=== PATIENT | female | born 1935 | race Caucasian/White ===

== ENCOUNTER 2020-01-13 12:00 | Inpatient (IN) | payer MEDICARE, BC ==
[~2020-01-13] VITALS: Ht 162.6 cm; Wt 80.3 kg
[~2020-01-13 12:00] MED LIST: APAP650 PO; ASPIRIN EC81 M1 PO; BACTRIM DS TAB1 EACH PO; CALCIUM OYSTER500 MG PO; CO Q-10 100 MG1 EACH PO; CRESTOR20 MG PO; DIOVAN HCT 80-1 EACH PO; GARLIC OIL1 EAC1 PO; GARLIC OIL3 MG PO; LORTAB 5 MG/5001 TAB PO; MOM PO; MULTIVITAMINS PO; NEURONTIN 300300 M1 PO; STOOL SOFTENER1 EAC2 PO; TRAMADOL 50 MG50 MG PO
[2020-01-13 12:02] VITALS: BP 189/128
[2020-01-13] MEDS ORDERED: ALEVE220 M1 PO (12:21)
[2020-01-13 12:29] LABS: URINE BILIRUBIN NEGATIVE (Negative); URINE BLOOD NEGATIVE (Negative); URINE CLARITY CLEAR; URINE COLOR YELLOW; URINE GLUCOSE-RANDOM NEGATIVE (Negative); URINE KETONES NEGATIVE (Negative); URINE LEUKOCYTES-REFLEX TRACE (Negative); URINE PROTEIN NEGATIVE (Negative); URINE SPECIFIC GRAVITY 1.015 (1.005-1.030); URINE UROBILINOGEN 0.2 E.U./dl (0.2-1.0)
[2020-01-13 12:30] LABS: URINE NITRITE-REFLEX POSITIVE (Negative)
[2020-01-13 12:36] LABS: SQUAMOUS 0-3 Few /LPF (0-3); URINE WBC-REFLEX 6-15 Few /HPF (0-5)
[2020-01-13 12:37] LABS: CASTS None Seen /LPF (None Seen); CRYSTALS None Seen /LPF (None Seen); MUCUS 0-3 Light strn/LPF (None Seen); URINE RBC 0-2 Rare /HPF (0-2)
[2020-01-13 13:42] LABS: ABSOLUTE BASOPHILS 0.1 thou/uL (0.0-0.2); ABSOLUTE EOSINOPHILS 0.2 thou/uL (0.0-0.7); ABSOLUTE LYMPHOCYTES 1.2 thou/uL (0.8-5.3); ABSOLUTE MONOCYTES 0.4 thou/uL (0.0-1.2); ABSOLUTE NEUTROPHILS 3.8 thou/uL (1.6-8.1); EOSINOPHILS 2.9 %; HEMOGLOBIN 13.8 gm/dL (12.0-15.0); LYMPHOCYTES 21.3 %; MCH 30.2 pg (26.0-34.0); MCHC 33.8 g/dL (28.0-37.0); MCV 89.3 fL (80.0-100.0); MONOCYTES 7.3 %; MPV 8.5 fl. (7.2-11.1); NUCLEATED RBCS 0 /100WBC; PLATELET COUNT* 297 thou/uL (150-400); POLYS 67.5 %; RBC 4.59 mil/uL (4.20-5.00); RDW-CV 13.3 % (10.5-14.5); WBC 5.6 thou/uL (4.0-11.0)
--- NOTE | 2020-01-13 13:43 | EKG ---
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
[2020-01-13 13:51] LABS: PROTIME 10.3 Seconds (9.20-11.50)
[2020-01-13 13:58] LABS: CALCIUM 8.6 mg/dL (8.5-10.1); CREATININE 0.8 mg/dL (0.6-1.3); POTASSIUM 3.8 mmol/L (3.5-5.1)
[2020-01-13 14:03] LABS: ALBUMIN 3.6 g/dL (3.4-5.0); TOTAL BILIRUBIN 0.8 mg/dL (<0.1-1.0); TOTAL PROTEIN 7.1 g/dL (6.4-8.2)
[2020-01-13 20:15] VITALS: BP 175/93
[2020-01-13 20:30] VITALS: BP 148/90
--- NOTE | 2020-01-13 20:30 | NUR ---
PT ADMITTED TO FLOOR PER CART ACCOMPANIED BY ER STAFF WITH BELONGINGS. ORIETED TO SELF AND KNOWS SHE IS "AT A HOSPITAL". PLEASANT. SLIDES WITH ASSIST FROM CART TO BED. SEWELL DRAINING YELLOW URINE. RWRIST IV SL, WITH PROTECTIVE WRAP IN PLACE, ER STAFF STATES PT PULLED OUT IV BEFORE COMING TO FLOOR AND NEW ONE STARTED. O2 2L, SAT 99%. ORIENTED TO ROOM AND CALL LITE, SNACK OBTAINED FOR PT PER REQUEST. BED ALARM ON FOR SAFETY, FALL PRECAUTIONS IN PLACE. CALL LITE IN EASY REACH. WILL CONTINUE TO MONITOR AND PROVIDE CARES NEEDED.
--- NOTE | 2020-01-14 05:26 | NUR ---
NEW ADMIT THIS SHIFT, PT HAS BEEN AWAKE MUCH OF THE NIGHT. AO TO SELF, CONFUSED, DEMENTIA. ASKING ABOUT FAMILY MEMBERS, QUESTIONS ANSWERED AND CONTINUE TO ASK THE SAME QUESTIONS IN A FEW MINUTES. IMPULSIVE, PULLING AT IV AND SEWELL- EDUCATION GIVEN, PT PLEASANT AND AGREES TO LEAVE THEM ALONE BUT FORGETS AND CONTINUES TO PULL AT LINES. NEW IV LFA, WRAPPED WITH PROTECTIVE WRAP PLACED ON PUMP FOR INFUSION. SEWELL DRAINING YELLOW URINE. PT MOVES ABOUT IN BED, SETTING OFF BED ALARM TRYING TO CLIMB OUT BETWEEN RAILS TO GO "TALK TO MY DAUGHTER IN THE OTHER ROOM." NAPROXEN GIVEN FOR CO HIP PAIN, UNABLE TO RATE. ATE 50% REGULAR SNACK AT BEDTIME. JUANA AREA RED, JUANA CARE GIVEN. O2 2L NC, ROOM AIR SAT 89%, DIFFICULT TO KEEP O2 ON PT. CALL LITE IN EASY REACH, BED ALARM ON FOR SAFETY.
[2020-01-14 09:00] VITALS: BP 185/96
[2020-01-14 10:42] LABS: HEMATOCRIT 41.1 % (37.0-47.0); HEMOGLOBIN 13.7 gm/dL (12.0-15.0); MCH 29.8 pg (26.0-34.0); MCHC 33.3 g/dL (28.0-37.0); MCV 89.5 fL (80.0-100.0); MPV 8.4 fl. (7.2-11.1); RBC 4.59 mil/uL (4.20-5.00); RDW-CV 13.2 % (10.5-14.5); WBC 7.1 thou/uL (4.0-11.0)
[2020-01-14 11:01] LABS: ALBUMIN 3.3 g/dL (3.4-5.0); CALCIUM 8.2 mg/dL (8.5-10.1); CREATININE 0.9 mg/dL (0.6-1.3); MAGNESIUM 1.9 mg/dL (1.8-2.4); POTASSIUM 3.4 mmol/L (3.5-5.1); TOTAL BILIRUBIN 0.9 mg/dL (<0.1-1.0); TOTAL PROTEIN 6.9 g/dL (6.4-8.2)
[2020-01-14 16:00] VITALS: BP 186/91
--- NOTE | 2020-01-14 19:31 | NUR ---
ALERT TO SELF. CONFUSED TO PLACE AND TIME. FREQUENTLY PULLING AT TUBINGS/IV. IV INFILTRATED WHEN PATIENT REMOVED COBAN. NEW IV STARTED WITHOUT DIFFICULTY. DR NOTIFIED OF ELEVATED B/P. NEW ORDERS NOTED. IVF STOPPED. SEWELL CATHETER PATENT WITH CLEAR YELLOW URINE. FREQUENTLY SETTING OFF CHAIR ALARM TODAY. AT BEDSIDE FOR PART OF TODAY. ON SCHEDULED PAIN MEDICATION. CONTINUES ON IV ANTIBIODICS WITHOUT ADVERSE REACTIONS OR SIDE EFFECTS. UP WITH 1 ASSIST GAIT BELT AND WALKER. FALL PRECAUTIONS IN PLACE. BED ALARM AND CHAIR ALARM USED.
[2020-01-14 20:00] VITALS: BP 176/101
[2020-01-15] VITALS: BP 140/81
--- NOTE | 2020-01-15 06:14 | NUR ---
PATIENT ALERT AND ORIENTED TO SELF ONLY. WAS UP IN CHAIR AT SHIFT CHANGE. BACK TO BED 1999. CONTINUED TO SET OFF ALARM MULTIPLE TIMES. TYLENOL GIVEN FOR LOW-GRADE TEMP. BENADRYL PROVIDED FOR SLEEP AND PATIENT'S CONSTANT PICKING. THIS DID SEEM TO HAVE SOME POSITIVE EFFECT AND PATIENT APPEARED TO BE SLEEPING AFTER MIDNIGHT AND CURRENTLY RESTING QUIETLY. FALL PRECAUTIONS IN PLACE. BP MEDICATION STARTED YESTERDAY. MIDNIGHT BP MUCH IMPROVED AT 140/81. CONTINUE TO MONITOR.
[2020-01-15 10:00] VITALS: BP 137/68
--- NOTE | 2020-01-15 17:03 | NUR ---
ALERT TO SELF. CONFUSED TO PLACE, TIME AND SITUATION. HASBAND AT BEDSIDE. SEWELL CATHETER PATENT WITH CLEAR YELLOW URINE. CONTINUES ON IV ANTIBIODICS WITH NO ADVERSE REACTIONS. FALL PRECAUTIONS IN PLACE. BED ALARM AND CHAIR ALARM USED. UP WITH 1 ASSIST GAIT BELT AND WALKER. CONTINENT OF BOWEL MOVENENT.
[2020-01-15 18:35] VITALS: BP 153/80
--- NOTE | 2020-01-16 05:48 | NUR ---
PT ALERT, ORIENTED ONLY TO SELF; PLEASANTLY CONFUSED. PT ASSISTED WITH TURNS BUT WOULD MOVE TO BACK TO SUPINE. PT WITH SEWELL TO DEPENDENT DRAIN WITH DARK YELLOW URINE. UNABLE TO KEEP STAT LOCK ON SEWELL PT REPEATEDLY REMOVES IT. PT WITH SALINE LOCK IN LT AC. PT 95% ON ROOM AIR; VITALS WNL AND REMAINED AFEBRILE DURING THIS SHIFT. PT TAKES PILLS ONE AT A TIME. FREQUENTLY USED ITEMS AND CALL LIGHT WITHIN REACH. SIDERAILS UPX3 AND BED ALARM ON. FREQUENT OBSERVATIONS MADE. WILL CONTINUE TO MONITOR.
[2020-01-16 08:00] VITALS: BP 173/68
[2020-01-16] MEDS ORDERED: METOPROLOL TART25 MG PO (08:30)
[2020-01-16] MEDS ORDERED: KEFLEX500 M1 PO (08:30)
[2020-01-16 11:35] VITALS: BP 173/68
--- NOTE | 2020-01-16 11:37 | NUR ---
GWEN spoke with Dr Goldberg, pt nurse and pt . Pt lives at home with and plan is to dc home today at 2 pm. SW discussed HH services and options with pt ; choice for [facility] and SW faxed referral and orders to [facility]: [phone] and fax [phone]. No other dc needs expressed at this time.
[2020-01-16 13:37] VITALS: BP 173/68
[2020-01-16 16:00] VITALS: BP 173/68
--- NOTE | 2020-01-16 16:57 | NUR ---
I ASSUMED CARE OF THE PATIENT AT 0700. SHE IS ALERT AND ORIENTED ONLY TO SELF. BED IS IN THE LOW LOCKED POSITION AND CALL LIGHT IS IN REACH. HOURLY ROUNDING IS COMPLETED AND PATIENT NEEDS ARE MET. PAIN IS DENIED. DONATO WAS D/C'D BEFORE DISCHARGE. SHE WAS GIVEN A BEDBATH BEFORE D/C WELL. PATIENT REMOVED HER OWN IV BEFORE MY SHIFT. CAME TO PICK HER UP AND ALREADY HAS A FOLLOW UP APPOINTMENT TOMORROW. SCRIPTS WERE CALLED IN TO THE PHARMACY BY PHYSICIAN. WILL CONTINE TO MONITOR.
== END 2020-01-16 15:40 | disposition home health service (06) | DRG 689 ==
LOC: M.ERS 12:00 → M.TBA-ER 14:08 → M.3W 14:08
PROVIDERS: Family Medicine; ADMIT Internal Medicine; ATTEND Internal Medicine
DX: N39.0 Urinary tract infection, site not specified (principal); G92 Toxic encephalopathy; R65.11 Systemic inflammatory response syndrome (SIRS) of non-infectious origin with acute organ dysfunction; F03.90 Unspecified dementia, unspecified severity, without behavioral disturbance, psychotic disturbance, mood disturbance, and anxiety; B96.20 Unspecified Escherichia coli [E. coli] as the cause of diseases classified elsewhere; E78.00 Pure hypercholesterolemia, unspecified; E78.5 Hyperlipidemia, unspecified; R53.81 Other malaise; M25.551 Pain in right hip; I10 Essential (primary) hypertension; Z79.82 Long term (current) use of aspirin; Z79.899 Other long term (current) drug therapy; Z88.8 Allergy status to other drugs, medicaments and biological substances; Z72.89 Other problems related to lifestyle; Z90.49 Acquired absence of other specified parts of digestive tract; Z90.710 Acquired absence of both cervix and uterus

== ENCOUNTER 2020-02-06 10:13 | Inpatient (IN) | payer MEDICARE, BC ==
[~2020-02-06] VITALS: Ht 157.5 cm; Wt 81.4 kg
[~2020-02-06 10:13] MED LIST changes: +ALEVE220 M1 PO; +KEFLEX500 M1 PO; +METOPROLOL TART25 MG PO
[2020-02-06 10:14] VITALS: BP 84/42
[2020-02-06 10:33] LABS: HEMATOCRIT 39.2 % (37.0-47.0); HEMOGLOBIN 13.2 gm/dL (12.0-15.0); MCH 29.8 pg (26.0-34.0); MCHC 33.8 g/dL (28.0-37.0); MCV 88.3 fL (80.0-100.0); MPV 8.3 fl. (7.2-11.1); NUCLEATED RBCS 0 /100WBC; PLATELET COUNT* 271 thou/uL (150-400); RBC 4.44 mil/uL (4.20-5.00); RDW-CV 13.1 % (10.5-14.5)
[2020-02-06 10:38] LABS: CALCIUM 8.6 mg/dL (8.5-10.1); CREATININE 1.1 mg/dL (0.6-1.3); POTASSIUM 4.3 mmol/L (3.5-5.1)
[2020-02-06 10:41] LABS: PROTIME 10.2 Seconds (9.20-11.50)
[2020-02-06 10:49] LABS: ALBUMIN 3.1 g/dL (3.4-5.0); TOTAL BILIRUBIN 0.9 mg/dL (<0.1-1.0); TOTAL PROTEIN 6.7 g/dL (6.4-8.2)
[2020-02-06 11:26] LABS: ABSOLUTE BASOPHILS 0.2 thou/uL (0.0-0.2); ABSOLUTE LYMPHOCYTES 2.3 thou/uL (0.8-5.3); ABSOLUTE MONOCYTES 1.7 thou/uL (0.0-1.2)
[2020-02-06 11:29] LABS: PLATELET ESTIMATE ADEQUATE
[2020-02-06 11:30] LABS: TOXIC GRANULATION 1+
[2020-02-06 16:10] VITALS: BP 126/63
[2020-02-06 18:00] VITALS: BP 114/78
[2020-02-06 19:29] LABS: URINE BILIRUBIN NEGATIVE (Negative); URINE BLOOD 3+ (Negative); URINE COLOR YELLOW; URINE GLUCOSE-RANDOM NEGATIVE (Negative); URINE KETONES NEGATIVE (Negative); URINE LEUKOCYTES-REFLEX 2+ (Negative); URINE NITRITE-REFLEX POSITIVE (Negative); URINE PROTEIN 1+ (Negative); URINE UROBILINOGEN 0.2 E.U./dl (0.2-1.0)
[2020-02-06 19:30] LABS: URINE CLARITY CLOUDY
[2020-02-06 19:40] VITALS: BP 90/51
[2020-02-06 19:41] LABS: SQUAMOUS 0-3 Few /LPF (0-3)
[2020-02-06 19:42] LABS: BACTERIA-REFLEX >30 Many /HPF (None Seen); CASTS None Seen /LPF (None Seen); CRYSTALS None Seen /LPF (None Seen); URINE RBC >20 Many /HPF (0-2); URINE WBC-REFLEX >25 Many /HPF (0-5)
[2020-02-06 21:00] VITALS: BP 85/43
[2020-02-07] VITALS (8 sets, daily range): BP systolic 82–140; BP diastolic 47–70
[2020-02-07 11:53] LABS: CHOLESTEROL 118 mg/dL (<200); HDL CHOLESTEROL 64 mg/dL (>40); LDL CHOLESTEROL 45 mg/dL (<100); TC:HDL 1.8 Ratio (Not establshd); TRIGLYCERIDE 47 mg/dL (<150); VLDL 9 mg/dL (<40)
[2020-02-07 11:56] LABS: SERUM ASSESSMENT Clear
--- NOTE | 2020-02-07 13:20 | EKG ---
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1935 Requested By: Kalina Goldberg Order Number: [id number] Reading MD: Berto Carlson Measurements Intervals [place] Rate: 137 P: [place]: QRS: 6 QRSD: 92 T: 70 QT: 319 QTc: 482 Interpretive Statements Atrial fibrillation Borderline low voltage, extremity leads ST depression, probably rate related Borderline prolonged QT interval Compared to ECG 01/13/2020 12:28:19 ST (T wave) deviation now present Sinus rhythm no longer present Electronically Signed On 02-07-2020 13:20:43 CDT by Berto Carlson [email or web address] <ELECTRONICALLY SIGNED> By: Berto Carlson MD, FAC 02/07/20 1320 1846 1846 Berto Carlson MD, FAC /EPI
--- NOTE | 2020-02-07 14:24 | 2DMMODE ---
[place] [address] 2 D/M-MODE ECHOCARDIOGRAM Name: LUZ ADAMS Room: [address] IN .R.#: [id number] Admission: 02/06/20 Attend Phys: Kalina Goldberg, Discharge: Date of : 33 Date of Service: 02/07/20 1423 Report #: [id number] THIS REPORT FOR: cc: Nnamdi Godinez MD, Tuongvan T. MD Liston, Michael J. MD [facility] ~ APPROVED REPORT Study performed: 02/07/2020 09:30:26 EXAM: Comprehensive 2D, Doppler, and color-flow Echocardiogram Patient Location: In-Patient Room #: [facility] Status: routine BSA: 1.82 HR: 693 bpm BP: 105/48 mmHg Rhythm: NSR Other Information Study Quality: Good Indications Tachycardia 2D Dimensions IVSd: 9.26 (7-11mm) LVOT Diam: 17.17 (18-24mm) LVDd: 38.28 mm PWd: 9.26 (7-11mm) Ascending Ao: 34.15 (22-36mm) LVDs: 19.76 (25-40mm) Aortic Root: 29.71 mm Volumes Left Atrial Volume (Systole) LA ESV Index: 23.70 mL/m2 Aortic Valve AoV Peak Tripp.: 1.25 m/s AO Peak Gr.: 6.28 mmHg LVOT Max P.84 mmHg AO Mean Gr.: 3.55 mmHg LVOT Mean P.40 mmHg LVOT Max V: 0.84 m/s AO V2 VTI: 23.31 cm LVOT Mean V: 0.54 m/s ERICK (VTI): 1.91 cm2 LVOT V1 VTI: 19.21 [place] [address] 2 D/M-MODE ECHOCARDIOGRAM Name: LUZ ADAMS Room: [address] IN ..#: [id number] Admission: 02/06/20 Attend Phys: Kalina Goldberg, Discharge: Date of : 33 Date of Service: 02/07/20 1423 Report #: [id number] Mitral Valve E/A Ratio: 2.85 MV Decel. Time: 165.76 ms MV E Max Tripp.: 1.01 m/s MV PHT: 48.07 ms MVA (PHT): 4.58 cm2 TDI E/Lateral E': 9.18 E/Medial E': 8.42 Medial E' Tripp.: 0.12 m/s Lateral E' Tripp.: 0.11 m/s Pulmonary Valve PV Peak Tripp.: 0.84 m/s PV Peak Gr.: 2.80 mmHg Tricuspid Valve RAP Estimate: 5.00 mmHg TR Peak Gr.: 23.03 mmHg RVSP: 28.00 mmHg PA Pressure: 28.00 mmHg Left Ventricle The left ventricle is normal size. There is normal LV segmental wall motion. There is normal left ventricular wall thickness. Left ventricular systolic function is normal. LVEF is 55-60%. Transmitral Doppler flow pattern suggests impaired LV relaxation. Right Ventricle The right ventricle is normal size. The right ventricular systolic function is normal. Atria Left atrium is mildly dilated. The right atrium size is normal. Aortic Valve The aortic valve is normal in structure. No aortic regurgitation is present. There is no aortic valvular stenosis. Mitral Valve The mitral valve is normal in structure. Trace mitral regurgitation. No evidence of mitral valve stenosis. Tricuspid Valve The tricuspid valve is normal in structure. Mild tricuspid regurgitation. [place] [address] 2 D/M-MODE ECHOCARDIOGRAM Name: LUZ ADAMS Room: [address] IN [facility]#: [id number] Admission: 02/06/20 Attend Phys: Kalina Goldberg, Discharge: Date of : 33 Date of Service: 02/07/20 1423 Report #: [id number] Pulmonic Valve The pulmonary valve is normal in structure. There is no pulmonic valvular regurgitation. Great Vessels The aortic root is normal in size. IVC is dilated and collapses <50% with inspiration. Pericardium There is no pericardial effusion. <Conclusion> The left ventricle is normal size. There is normal left ventricular wall thickness. Left ventricular systolic function is normal. LVEF is 55-60%. Transmitral Doppler flow pattern suggests impaired LV relaxation. Left atrium is mildly dilated. Trace mitral regurgitation. Mild tricuspid regurgitation. No pulmonary hypertension. IVC is dilated and collapses <50% with inspiration. <ELECTRONICALLY SIGNED> By: Bogdan Walker MD, FACC 02/07/20 1423 1423 1423 Bogdan Walker MD, FACC /INF
--- NOTE | 2020-02-07 14:24 | EKG ---
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: : 1935 Requested By: Bogdan Walker Order Number: [id number] Steff MD: Berto Carlson Measurements Intervals [place] Rate: 57 P: 31 MI: 209 QRS: 14 QRSD: 75 T: 32 QT: 436 QTc: 425 Interpretive Statements Sinus bradycardia Atrial premature complex Low voltage, precordial leads RSR' in V1 or V2, right VCD or RVH Compared to ECG 02/06/2020 18:46:57 Atrial premature complex(es) now present RSR' in V1 or V2 now present Atrial fibrillation no longer present ST (T wave) deviation no longer present Electronically Signed On 02-07-2020 14:24:46 CDT by Berto Carlson [email or web address] <ELECTRONICALLY SIGNED> By: Berto Carlson MD, [facility] 02/07/20 1424 0410 Berto Carlson MD, [facility] /EPI
[2020-02-08] VITALS: BP 90/72
[2020-02-08 04:00] VITALS: BP 131/77
[2020-02-08 04:34] LABS: HEMATOCRIT 34.7 % (37.0-47.0); HEMOGLOBIN 11.5 gm/dL (12.0-15.0); MCH 29.6 pg (26.0-34.0); MCHC 33.2 g/dL (28.0-37.0); MCV 89.3 fL (80.0-100.0); RBC 3.89 mil/uL (4.20-5.00); RDW-CV 14.2 % (10.5-14.5); WBC 25.8 thou/uL (4.0-11.0)
[2020-02-08 04:55] LABS: ALBUMIN 2.3 g/dL (3.4-5.0); CALCIUM 7.5 mg/dL (8.5-10.1); CREATININE 1.4 mg/dL (0.6-1.3); MAGNESIUM 1.9 mg/dL (1.8-2.4); POTASSIUM 3.9 mmol/L (3.5-5.1); TOTAL BILIRUBIN 0.6 mg/dL (<0.1-1.0); TOTAL PROTEIN 6.1 g/dL (6.4-8.2)
[2020-02-08 08:04] VITALS: BP 134/98
--- NOTE | 2020-02-08 10:47 | EKG ---
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1935 Requested By: Phoebe Longoria Order Number: [id number] Reading MD: Berto Carlson Measurements Intervals [place] Rate: 114 P: [place]: QRS: 17 QRSD: 86 T: 24 QT: 361 QTc: 498 Interpretive Statements Atrial fibrillation early transition Low voltage, extremity and precordial leads Borderline prolonged QT interval Compared to ECG 02/07/2020 04:10:15 Sinus bradycardia no longer present Electronically Signed On 02-08-2020 10:46:46 CDT by Berto Carlson [email or web address] <ELECTRONICALLY SIGNED> By: Berto Carlson MD, [facility] 02/08/20 1046 9 9 Berto Carlson MD, [facility] /EPI
[2020-02-08 12:18] VITALS: BP 125/74
[2020-02-08 16:25] VITALS: BP 157/97
[2020-02-08 20:00] VITALS: BP 112/93
[2020-02-09] VITALS: BP 146/85
[2020-02-09 04:00] VITALS: BP 141/79
[2020-02-09 05:13] LABS: HEMATOCRIT 37.4 % (37.0-47.0); HEMOGLOBIN 12.5 gm/dL (12.0-15.0); MCH 29.6 pg (26.0-34.0); MCHC 33.3 g/dL (28.0-37.0); MCV 88.9 fL (80.0-100.0); MPV 9.5 fl. (7.2-11.1); RBC 4.21 mil/uL (4.20-5.00); WBC 21.1 thou/uL (4.0-11.0)
[2020-02-09 05:34] LABS: ALBUMIN 2.2 g/dL (3.4-5.0); CALCIUM 7.8 mg/dL (8.5-10.1); CREATININE 1.2 mg/dL (0.6-1.3); MAGNESIUM 1.9 mg/dL (1.8-2.4); POTASSIUM 3.4 mmol/L (3.5-5.1); TOTAL BILIRUBIN 0.3 mg/dL (<0.1-1.0)
[2020-02-09 07:40] VITALS: BP 165/81
[2020-02-09 12:22] VITALS: BP 133/76
--- NOTE | 2020-02-09 13:03 | EKG ---
[place] [address] ELECTROCARDIOGRAM REPORT Name: ANGIELUZ Urena Room: [address] ADM IN M.R.#: [id number] Admission: 02/06/20 Attend Phys: Kalina Goldberg, Discharge: Date of : 33 Date of Service: 02/09/20816 Report #: [id number] THIS REPORT FOR: //name// 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
[2020-02-09 16:17] VITALS: BP 106/85
[2020-02-09 20:00] VITALS: BP 172/98
[2020-02-10] VITALS: BP 130/87
[2020-02-10 04:00] VITALS: BP 125/77
[2020-02-10 04:46] LABS: HEMATOCRIT 38.9 % (37.0-47.0); HEMOGLOBIN 13.1 gm/dL (12.0-15.0); MCH 29.8 pg (26.0-34.0); MCHC 33.8 g/dL (28.0-37.0); MCV 88.3 fL (80.0-100.0); MPV 9.3 fl. (7.2-11.1); RBC 4.41 mil/uL (4.20-5.00); RDW-CV 13.3 % (10.5-14.5); WBC 14.1 thou/uL (4.0-11.0)
[2020-02-10 05:11] LABS: ALBUMIN 2.1 g/dL (3.4-5.0); CALCIUM 7.6 mg/dL (8.5-10.1); CREATININE 1.2 mg/dL (0.6-1.3); MAGNESIUM 2.1 mg/dL (1.8-2.4); POTASSIUM 3.7 mmol/L (3.5-5.1); TOTAL BILIRUBIN 0.6 mg/dL (<0.1-1.0)
[2020-02-10 08:00] VITALS: BP 161/97
[2020-02-10 12:18] VITALS: BP 120/63
[2020-02-10 16:15] VITALS: BP 108/60
[2020-02-10 20:00] VITALS: BP 151/85
[2020-02-11 00:44] VITALS: BP 166/84
[2020-02-11 08:07] VITALS: BP 164/86
[2020-02-11 12:00] VITALS: BP 97/61
[2020-02-11 16:00] VITALS: BP 109/74
[2020-02-11 20:00] VITALS: BP 164/90
[2020-02-12 00:31] VITALS: BP 169/78
[2020-02-12 04:12] VITALS: BP 125/68; BP 169/85
[2020-02-12 06:15] LABS: CALCIUM 9.2 mg/dL (8.5-10.1); CREATININE 1.2 mg/dL (0.6-1.3); POTASSIUM 3.8 mmol/L (3.5-5.1)
[2020-02-12 06:17] LABS: HEMATOCRIT 40.6 % (37.0-47.0); HEMOGLOBIN 13.4 gm/dL (12.0-15.0); MCH 29.5 pg (26.0-34.0); MCV 89.3 fL (80.0-100.0); NUCLEATED RBCS 0 /100WBC; RBC 4.55 mil/uL (4.20-5.00); RDW-CV 13.3 % (10.5-14.5); WBC 12.5 thou/uL (4.0-11.0)
[2020-02-12 06:53] LABS: PLATELET COUNT* 286 thou/uL (150-400)
[2020-02-12 07:28] LABS: ABSOLUTE EOSINOPHILS 0.3 thou/uL (0.0-0.7); ABSOLUTE LYMPHOCYTES 2.1 thou/uL (0.8-5.3); ABSOLUTE MONOCYTES 0.4 thou/uL (0.0-1.2); ABSOLUTE NEUTROPHILS 9.8 thou/uL (1.6-8.1); PLATELET ESTIMATE ADEQUATE
[2020-02-12 07:48] VITALS: BP 164/59
[2020-02-12 12:08] VITALS: BP 130/80
[2020-02-12 16:00] VITALS: BP 131/73
[2020-02-12 20:10] VITALS: BP 158/73
[2020-02-13] VITALS: BP 134/67
[2020-02-13 03:59] VITALS: BP 148/72
[2020-02-13 05:48] LABS: ABSOLUTE BASOPHILS 0.1 thou/uL (0.0-0.2); ABSOLUTE EOSINOPHILS 0.5 thou/uL (0.0-0.7); ABSOLUTE LYMPHOCYTES 1.5 thou/uL (0.8-5.3); ABSOLUTE NEUTROPHILS 7.4 thou/uL (1.6-8.1); BASOPHILS 0.9 %; HEMATOCRIT 37.4 % (37.0-47.0); HEMOGLOBIN 12.8 gm/dL (12.0-15.0); LYMPHOCYTES 14.4 %; MCHC 34.3 g/dL (28.0-37.0); MCV 87.6 fL (80.0-100.0); MONOCYTES 9.8 %; MPV 8.2 fl. (7.2-11.1); NUCLEATED RBCS 0 /100WBC; PLATELET COUNT* 318 thou/uL (150-400); POLYS 69.9 %; RBC 4.28 mil/uL (4.20-5.00); RDW-CV 13.8 % (10.5-14.5); WBC 10.6 thou/uL (4.0-11.0)
[2020-02-13 06:07] LABS: CALCIUM 8.4 mg/dL (8.5-10.1); CREATININE 1.3 mg/dL (0.6-1.3); POTASSIUM 3.6 mmol/L (3.5-5.1)
[2020-02-13 07:35] VITALS: BP 112/82
[2020-02-13] MEDS ORDERED: AMIODARONE HCL400 MG PO (09:07)
--- NOTE | 2020-02-13 11:09 | EKG ---
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1935 Requested By: Kalina Goldberg Order Number: [id number] Reading MD: Berto Carlson Measurements Intervals [place] Rate: 67 P: 0 ID: [id number] QRS: 186 QRSD: 97 T: 131 QT: 437 QTc: 462 Interpretive Statements Right and left arm electrode reversal, interpretation assumes no reversal atrial fibrillation Right axis deviation Low voltage, extremity leads Nonspecific T abnormalities, lateral leads Compared to ECG 02/09/2020 08:17:34 Right-axis deviation now present T-wave abnormality now present Electronically Signed On 02-13-2020 11:09:34 CDT by Berto Carlson [email or web address] <ELECTRONICALLY SIGNED> By: Berto Carlson MD, FACC 02/13/20 1109 0755 0755 Berto Carlson MD, [facility] /EPI
[2020-02-13] MEDS ORDERED: ELIQUIS5 MG PO (11:22)
[2020-02-13 12:17] VITALS: BP 111/50
[2020-02-13] MEDS ORDERED: CEFUROXIME500 MG PO (13:04)
[2020-02-13] MEDS ORDERED: LASIX 20 MG TAB20 MG PO (13:04)
[2020-02-13] MEDS ORDERED: PACERONE200 MG PO (13:21)
[2020-02-13 16:08] VITALS: BP 133/58
== END 2020-02-13 17:28 | disposition home health service (06) | DRG 871 ==
LOC: M.ERS 10:13 → M.TBA-ER 14:25 → M.2W 14:25 → M.ORTHSURG 16:16 → M.2W 20:22
PROVIDERS: Internal Medicine; Personal Emergency Response Attendant; Registered Nurse; ADMIT Internal Medicine; ATTEND Internal Medicine
DX: A41.51 Sepsis due to Escherichia coli [E. coli] (principal); G92 Toxic encephalopathy; I50.33 Acute on chronic diastolic (congestive) heart failure; N39.0 Urinary tract infection, site not specified; E78.00 Pure hypercholesterolemia, unspecified; E78.5 Hyperlipidemia, unspecified; I48.0 Paroxysmal atrial fibrillation; I11.0 Hypertensive heart disease with heart failure; B96.20 Unspecified Escherichia coli [E. coli] as the cause of diseases classified elsewhere; R79.1 Abnormal coagulation profile; I25.10 Atherosclerotic heart disease of native coronary artery without angina pectoris; F03.90 Unspecified dementia, unspecified severity, without behavioral disturbance, psychotic disturbance, mood disturbance, and anxiety; Z90.710 Acquired absence of both cervix and uterus; Z88.8 Allergy status to other drugs, medicaments and biological substances; Z79.899 Other long term (current) drug therapy; Z87.440 Personal history of urinary (tract) infections; Z95.5 Presence of coronary angioplasty implant and graft; Z20.828 Contact with and (suspected) exposure to other viral communicable diseases